=== PATIENT | female | born 1975 | race Caucasian/White ===

== ENCOUNTER 2022-06-09 08:26 | Emergency (ER) | payer MEDICAID, SELFPAY ==
[2022-06-09 08:26] VITALS: BP 161/109; PULSE 89; RESP 22; TEMP 36.6; O2SAT 99; BMI 26.2
--- NOTE | 2022-06-09 08:35 | NURSING ---
NO OLD EKGS
--- NOTE | 2022-06-09 08:53 | EKG12_ITS ---
Test Reason : CP Blood Pressure : / mmHG Vent. Rate : 085 BPM Atrial Rate : 085 BPM P-R Int : 120 ms QRS Dur : 086 ms QT Int : 356 ms P-R-T Axes : 070 -63 074 degrees QTc Int : 423 ms Normal sinus rhythm Left anterior fascicular block Minimal voltage criteria for LVH, may be normal variant ( [place] product ) Abnormal ECG Confirmed by BETH SPENCE, REYES ([id number]), general expeditor ANDREI VIRAMONTES ([id number]) on 06/10/2022 9:44:13 AM Referred By: SHELLY Confirmed By:REYES CAMPOS MD
--- NOTE | 2022-06-09 09:00 | RAD_ITS ---
STUDY: X-RAY CHEST REASON FOR EXAM: Female, 46 years old. Chest pain TECHNIQUE: Single AP portable view of the chest. COMPARISON: None. FINDINGS: EKG electrodes are seen. Hyperinflation. The lungs are clear. There is no demonstrated pleural abnormality. Normal size heart. Normal mediastinum and boaz. Normal visualized pulmonary arteries. Normal visualized aortic arch and descending thoracic aorta. Normal visualized thoracic spine. Normal visualized ribs, clavicles, and shoulders. There is no demonstrated abnormality of the visualized soft tissue structures of the upper abdomen. RAD/Chest 1 View (Portable) IMPRESSION: Hyperinflation. The lungs are clear. Electronically Signed: Rubio Canales MD at 9:31 EST ,
[2022-06-09 09:14] LABS: Absolute Lymphocyte Count 1.79 X10^3/uL (0.83-4.51); Absolute Neutrophil Count 4.5 X10^3/uL (2.0-7.7); Basophil# 0.03 X10^3/uL; Basophil% 0.4 % (0-1); Eosinophil# 0.06 X10^3/uL; Eosinophils% 0.9 % (0-5); Hematocrit 45.2 % (37-47); Hemoglobin 15.4 g/dL (12.0-15.0); Lymphocyte # 1.79 X10^3/ul (0.83-4.51); Mean Corp Hgb Conc 34.1 g/dL (32-36); Mean Corpuscular Hgb 32.6 pg (27.0-32.0); Mean Corpuscular Volume 95.6 fL (81-99); Mean Platelet Vol. 10.2 fl (6.2-12.0); Monocyte# 0.45 X10^3/uL; Monocyte% 6.5 % (0-10); NRBC Flagged by Analyzer 0 % (0-5); Neutrophil # 4.54 X10^3/uL (2.7-7.7); Neutrophil % 66.1 % (47-70); POSITIVE COUNT YES; RBC Distribution Width CV 12.4 % (11.6-14.6); RBC Distribution Width SD 43.7 fl (35.1-43.9); Red Blood Count 4.73 M/mm3 (4.2-5.4); White Blood Count 6.9 K/mm3 (4.4-11.0)
[2022-06-09 09:18] LABS: Differential Indicated SCAN CRITERIA MET
[2022-06-09 09:26] LABS: Anion Gap 10 (5-15); BUN 8 mg/dL (7-18); BUN/Creat Ratio 9.3 RATIO (10-20); Calcium,Total 9.6 mg/dL (8.5-10.1); Chloride 108 mmol/L (98-107); Creatinine, Serum 0.86 mg/dL (0.55-1.02); EST Glomerular Filtration Rate 75 mL/min (>60); Est Glom Filt Rate - Afr Amer 91 mL/min (>60); Estimated Creatinine Clearance 58.09 ml/min; Glucose 135 mg/dL (74-106); Potassium 4.1 mmol/L (3.5-5.1); Sodium Level 139 mmol/L (136-145); Troponin-I HS (w/2H Reflex) 3 pg/mL (3.0-54.0)
--- NOTE | 2022-06-09 09:32 | ED.RN ---
CURRENTLY NO PAIN. NO NITRO GIVEN
[2022-06-09 09:33] VITALS: BP 146/91; PULSE 83; RESP 16; O2SAT 98
[2022-06-09 09:38] LABS: Platelet Estimate ADEQUATE (ADEQ)
--- NOTE | 2022-06-09 09:50 | ED.VIS.CHEST ---
HPI History of Present Illness Chief Complaint: Chest Pain Informant: patient Onset/Context/Timing Onset: Today Activity at onset: gradual Timing: Intermittent Quality: Positive for Heaviness and Tightness Location: Left Chest Worsened By: Nothing Relieved By: Nothing Associated Symptoms: Positive for Diaphoresis, Dyspnea, Lightheadedness and Palpitations; Negative for Nausea, Vomiting, Cough, Fever or Acid Reflux Narrative Narrative: Patient presents with chest pain that began today. Patient states that came on gradually. Patient states it was present when she woke up this morning. Patient states it comes and goes. Patient describes it as a heaviness and tightness. Patient states it is over the left chest area. Patient states nothing makes it better nothing makes it worse. Patient is concerned because she has a family history of her mother who had coronary artery disease at a young age. Patient admits to some lightheadedness and diaphoresis with the pain. Patient admits to some shortness of breath when the pain comes on. Patient also admits to some palpitations. Patient admits to some tingling in her left arm and left jaw and tongue. Patient denies any weakness. CVD Risk Factors: Positive for Family History 1' </=55 and Smoking; Negative for Hypertension, Diabetes or Hypercholesterolemia PE Risk Factors: Negative for Recent Travel/Surgery, Recent Immobilization, Prior DVT or PE, Cancer or OCP + Smoking + >/=35 PFSH PFSH Medical History History of intravenous drug abuse Hx of acute pancreatitis Home Medications NK 06/09/22 [History Last Taken Unknown] Allergy/AdvReac Type Severity Reaction Status Date / Time bee venom protein (honey bee) Allergy Anaphylaxis Verified 06/09/22 08:30 [bee sting] Surgical History Hx of appendectomy Hx of cholecystectomy Hx of hand surgery Social History Smoking Status: Current every day smoker tobacco type: cigarettes ROS ROS ED Constitutional Constitutional ED: Denies chills or fever(s) Eyes Eyes: Reports blurry vision and change in vision ENT ENT ED: Denies rhinorrhea or sore throat Cardiovascular Cardiovascular: Reports chest pain and palpitations Respiratory/Chest Respiratory/Chest: Reports dyspnea; Denies cough Gastrointestinal Gastrointestinal: Denies abdominal pain, nausea or vomiting Genitourinary Genitourinary ED: Denies dysuria or hematuria Musculoskeletal Musculoskeletal: Denies back pain or neck pain Integumentary Denies abscess or rash Neurologic Neurologic: Denies headache(s) or weakness Allergic/Immunologic Allergic/Immunologic ED: Denies mouth swelling or urticaria EXAM Physical Exam Const Vital Signs: 06/09/22 08:26 06/09/22 08:32 06/09/22 08:59 Temperature 97.8 F Temperature Source Temporal Pulse Rate 89 Respiratory Rate 22 H Respiratory Effort Short of Breath Respiratory Pattern Tachypnea Blood Pressure 161/109 H Blood Pressure Mean 126 Pulse Ox 99 Oxygen Delivery Method Room Air Room Air 06/09/22 09:33 06/09/22 11:37 Temperature Temperature Source Pulse Rate 83 82 Respiratory Rate 16 18 Respiratory Effort Respiratory Pattern Blood Pressure 146/91 H 144/88 H Blood Pressure Mean 109 106 Pulse Ox 98 99 Oxygen Delivery Method Room Air Room Air Positive well nourished and well developed General Appearance ED: well developed and NAD HEENT normocephalic and atraumatic Eyes PERRL and EOMs intact bilaterally Neck supple and no JVD Chest Wall palpation of chest normal Resp normal respiratory effort and clear to auscultation bilaterally Effort and Inspection: Negative for respiratory distress Cardio regular rate, regular rhythm and no murmurs GI normal to inspection, nondistended, normoactive bowel sounds, soft to palpation, non-tender and non-distended Extremity normal to inspection General Extremety ED: Negative for edema or tenderness General Extremity: Negative for edema Neuro oriented x3, CN's II-XII intact bilaterally and no sensory deficits noted Sensorium / Orientation: awake and alert Motor Exam: strength 5/5 throughout Psych mental status grossly normal Heart Score History: Moderately Suspicious ECG: Normal Age: >45 - <65 years Risk Factors: 1 or 2 Risk Factors Troponin: </= Normal Limit Score: 3 MDM MDM MDM Narrative Medical decision making narrative: Differential diagnosis includes cardiac ischemia, cardiac dysrhythmia, pneumonia, pneumothorax, anxiety, pancreatitis, and musculoskeletal etiology. EKG will be obtained to assess for cardiac ischemia and cardiac dysrhythmia. Chest x-ray will be obtained to assess for pneumonia and pneumothorax. CBC will be obtained to assess for anemia and leukocytosis. Patient metabolic profile will be obtained to assess for electrolyte abnormality and renal function. High-sensitivity troponin will be obtained to assess for cardiac ischemia. 2-hour repeat high-sensitivity troponin will be obtained to assess for cardiac ischemia since her pain has only been present for the last few hours. Lipase will be obtained to assess for pancreatitis since she has a history of pancreatitis. Patient is PERC negative and has no PE risk factors so I do not feel this is related to pulmonary embolism. Lab Data Attestation: I reviewed the patient's lab results. Lab results narrative: CBC was reviewed and was within normal limits. Basic metabolic profile was reviewed and was within normal limits. Lipase was reviewed and was normal. Initial high-sensitivity troponin was reviewed and was normal at 3. 2-hour repeat high-sensitivity troponin was also reviewed and was also normal at 3. Labs: Laboratory Results - last 24 hr 06/09/22 06/09/22 06/09/22 08:40 08:40 08:40 WBC 6.9 RBC 4.73 Hgb 15.4 H Hct 45.2 MCV 95.6 MCH 32.6 H MCHC 34.1 RDW Std Deviation 43.7 RDW Coeff of Juan 12.4 Plt Count MPV 10.2 Immature Gran % (Auto) 0.100 Neut % (Auto) 66.1 Lymph % (Auto) 26.0 Jefferson % (Auto) 6.5 Eos % (Auto) 0.9 Baso % (Auto) 0.4 Absolute Neuts (auto) 4.5 Absolute Lymphs (auto) 1.79 Nucleated RBC % 0 Platelet Estimate ADEQUATE Sodium 139 Potassium 4.1 Chloride 108 H Carbon Dioxide 21.0 Anion Gap 10 BUN 8 Creatinine 0.86 Estim Creat Clear Calc 58.09 Est GFR (MDRD) Af Amer 91 Est GFR (MDRD) Non-Af 75 BUN/Creatinine Ratio 9.3 L Glucose 135 H Calcium 9.6 Troponin I High Sens 3 Lipase 208 06/09/22 11:25 WBC RBC Hgb Hct MCV MCH MCHC RDW Std Deviation RDW Coeff of Juan Plt Count MPV Immature Gran % (Auto) Neut % (Auto) Lymph % (Auto) Jefferson % (Auto) Eos % (Auto) Baso % (Auto) Absolute Neuts (auto) Absolute Lymphs (auto) Nucleated RBC % Platelet Estimate Sodium Potassium Chloride Carbon Dioxide Anion Gap BUN Creatinine Estim Creat Clear Calc Est GFR (MDRD) Af Amer Est GFR (MDRD) Non-Af BUN/Creatinine Ratio Glucose Calcium Troponin I High Sens 3 Lipase Radiography Chest X-Ray - ED: 1 View, Read by ED Physician, Read by Radiologist and No Acute Disease Diagnostic Testing: Clinical Impression(s) from Imaging Studies Chest X-Ray 06/09/22 09:00 IMPRESSION: Hyperinflation. The lungs are clear. Electronically Signed: Rubio Canales MD at 9:31 EST , Portable 1 view chest x-ray was obtained. On my independent interpretation, lung esquivel are clear. There is normal cardiac silhouette. Bony thorax is normal. There is no acute process noted. Radiologist also interpreted the x-ray and agrees. EKG Initial EKG: Attestation: I personally reviewed and interpreted this EKG as follows: Interpretation: Sinus Rhythm (85), No Acute Injury Pattern and LAFB Comments: EKG was obtained. On my interpretation, it showed a normal sinus rhythm with a rate of 85. LA interval, QRS interval, and QTc intervals were all normal. There is left axis deviation at -63. There are no acute ST or T wave changes. Prior EKG tracings: not available for review Prior: No Prior Treatment and Re-Evaluation Narrative: Patient was given aspirin here. Patient had no further pain and did not require sublingual nitroglycerin. Patient was given a dose of Tylenol. Smoking cessation was discussed. Patient has a HEART score of 3. Patient was advised that this is low risk for acute cardiac event. Patient was instructed to follow-up with her primary care physician in 5 to 7 days for further evaluation. Patient was instructed return if worse in any way. Patient understood and was agreeable with the plan. All questions were answered. Discharge Plan Triage Chief Complaint: Chest Pain ED Provider: Edmar Tavarez Dx/Rx/DC Orders Clinical Impression: Chest pain of uncertain etiology, Elevated blood pressure reading, Tobacco use Instructions: ED Chest Pain, Uncertain Cause Prescriptions: No Action NK Primary Care Provider: Care Physician,No Primary Referrals: Fast,Afshan, DO [Med Staff - [employer]] - 5-7 Days Care Physician,No Primary [Primary Care Provider] - Disposition Disposition: Home, Self Care
[2022-06-09 10:58] LABS: Lipase 208 U/L (73-393)
[2022-06-09 11:00] LABS: Reflex Troponin-HS? (from REC) Y
[2022-06-09] MEDS: Acetaminophen 500 MG Tablet 1000 MG PO (11:36)
[2022-06-09 11:37] VITALS: BP 144/88; PULSE 82; RESP 18; O2SAT 99
[2022-06-09 11:51] LABS: Troponin-I HS 3 pg/mL (3.0-54.0)
[2022-06-09 12:45] VITALS: PULSE 81; RESP 15
== END 2022-06-09 12:56 | disposition home or self-care (01) ==
PROVIDERS: Emergency Provider Emergency Medicine; Visit Provider Emergency Medicine
DX: R07.9 Chest pain, unspecified (principal); R00.2 Palpitations; R03.0 Elevated blood-pressure reading, without diagnosis of hypertension; R06.02 Shortness of breath; F17.210 Nicotine dependence, cigarettes, uncomplicated
CPT/HCPCS: 71045; 80048; 83690; 84484; 85025; 93005; 99285; A4216